=== PATIENT | female | born 2000 | race Caucasian/White ===

== ENCOUNTER 2025-05-20 05:05 | Emergency (ER) | payer SELFPAY ==
[2025-05-20] MEDS: Dexamethasone Sod Phos Preservative Free 10 MG/ML Vial IVPUSH ONE (06:25)
== END 2025-05-20 06:34 | disposition home or self-care (01) ==
LOC: MW.ED 05:05
DX: J02.9 Acute pharyngitis, unspecified (principal); K02.9 Dental caries, unspecified; H92.01 Otalgia, right ear; K04.7 Periapical abscess without sinus; Z79.899 Other long term (current) drug therapy
CPT/HCPCS: 87651; 96374; 99283; A9270; J1100

== ENCOUNTER 2025-07-18 21:17 | Emergency (ER) | payer MEDICAID | END 2025-07-19 00:40 | disposition left against medical advice (07) | LOC: MW.ED 21:17 | DX: Z53.21 Procedure and treatment not carried out due to patient leaving prior to being seen by health care provider (principal) | CPT/HCPCS: 73140-26-FA; 73140-FA ==